=== PATIENT | female | born 1950 | race Caucasian/White ===

== ENCOUNTER 2019-09-05 15:58 | Inpatient (IN) | payer BC, OTHER ==
[~2019-09-05] VITALS: Ht 160 cm; Wt 69.1 kg
[2019-09-05 16:10] VITALS: BP 203/83
[2019-09-05] MEDS ORDERED: TENORMIN25 MG PO (16:13)
[2019-09-05 16:39] LABS: ABSOLUTE NEUTROPHILS 3.6 thou/uL (1.4-8.2); EOSINOPHILS 3.2 % (0.0-3.0); HEMATOCRIT 44.5 % (37.0-47.0); HEMOGLOBIN 14.4 gm/dL (12.0-15.0); LYMPHOCYTES 33.5 % (24.0-44.0); MCH 28.4 pg (26.0-34.0); MCHC 32.3 g/dL (28.0-37.0); MCV 87.7 fL (80.0-100.0); MONOCYTES 6.3 % (1.0-8.0); PLATELET COUNT 335 thou/uL (150-400); RBC 5.07 mil/uL (4.20-5.00); WBC 6.5 thou/uL (4.0-11.0)
[2019-09-05 16:41] LABS: ANION GAP 6 mmol/L (7-16); BUN 15 mg/dL (7-18); CALCIUM 9.4 mg/dL (8.5-10.1); CHLORIDE 105 mmol/L (98-107); CO2 30 mmol/L (21-32); CREATININE 0.7 mg/dL (0.6-1.0); GLUCOSE 92 mg/dL (74-106); POTASSIUM 3.9 mmol/L (3.5-5.1); SODIUM 141 mmol/L (136-145)
[2019-09-05 16:49] LABS: TROPONIN-I <0.06 ng/mL (<0.06)
[2019-09-05 17:32] LABS: URINE BILIRUBIN NEGATIVE (Negative); URINE BLOOD NEGATIVE (Negative); URINE CLARITY CLEAR; URINE COLOR YELLOW; URINE GLUCOSE-RANDOM* NEGATIVE (Negative); URINE KETONES NEGATIVE (Negative); URINE LEUKOCYTES-REFLEX NEGATIVE (Negative); URINE NITRITE-REFLEX NEGATIVE (Negative); URINE PROTEIN (DIPSTICK) NEGATIVE (Negative); URINE UROBILINOGEN 0.2 E.U./dl (0.2-1.0)
[2019-09-05 18:06] VITALS: BP 149/66
[2019-09-05 20:04] VITALS: BP 176/79
[2019-09-05 20:30] VITALS: BP 187/57
[2019-09-06 00:22] VITALS: BP 150/68
--- NOTE | 2019-09-06 04:13 | NUR ---
PT WAS AN ER ADMIT. SHE IS A PT IS DR. VOGEL WHO IS ADMITTED WITH HIGH BLOOD PRESSURE. UPON ARRIVAL BLOOD PRESSURE WAS ELEVATED. PT IS ALERT AND ORIENTED. NO SIGN OF DISTRESS NOTED IN PT. ADMISSION ASSESSMENT AND EDUCATION COMPLETED. PHYSICIAN NOTIFIED UPON ARRIVAL. MEDICATION OBTAINED FOR BP. DENIES ANY PAIN. NO FURTHER NEEDS REQUESTED AT THIS TIME.
[2019-09-06 04:45] VITALS: BP 153/69
[2019-09-06 05:14] LABS: HEMATOCRIT 44.8 % (37.0-47.0); HEMOGLOBIN 14.6 gm/dL (12.0-15.0); MCH 28.6 pg (26.0-34.0); MCHC 32.6 g/dL (28.0-37.0); MCV 87.7 fL (80.0-100.0); RBC 5.11 mil/uL (4.20-5.00); RDW 14.6 % (10.5-14.5); WBC 6.9 thou/uL (4.0-11.0)
[2019-09-06 05:30] LABS: ANION GAP 9 mmol/L (7-16); BUN 14 mg/dL (7-18); CALCIUM 9.2 mg/dL (8.5-10.1); CHLORIDE 106 mmol/L (98-107); CO2 26 mmol/L (21-32); CREATININE 0.7 mg/dL (0.6-1.0); GLUCOSE 96 mg/dL (74-106); SODIUM 141 mmol/L (136-145); TROPONIN-I <0.06 ng/mL (<0.06)
[2019-09-06 07:42] VITALS: BP 143/65
--- NOTE | 2019-09-06 08:06 | EKG ---
[place] [address] [id number] [place] [address] ELECTROCARDIOGRAM REPORT Name: KEVIN RUIZ Room #: 217-P ADM IN M.R.#: [id number] Admission: 09/05/19 Attend Phys: Corbin Najera MD Discharge: Date of : 52 Report #: [id number] THIS REPORT FOR: //name// [facility] ED Test Date: 2019-09-05 Test Time: 16:04:45 Pat Name: KEVIN RUIZ Department: Room: 217 Gender: F Inspecting Supervisor: AKILAH : 1950 Requested By: Emily Jaeger Order Number: [id number] MD: Braydon Cdaena Measurements Intervals [place] Rate: 56 P: 60 DC: 197 QRS: -27 QRSD: 136 T: -5 QT: 437 QTc: 422 Interpretive Statements Sinus bradycardia Right bundle branch block Left ventricular hypertrophy Compared to ECG 01/13/1995 11:50:00 Right bundle-branch block now present Left ventricular hypertrophy now present Electronically Signed On 09-06-2019 8:05:37 DIETETIC AIDE by Braydon Cadena [email or web address] <ELECTRONICALLY SIGNED> By: Braydon Cadena MD, [facility] 09/06/19 0805 [id number] [id number] Braydon Cadena MD, [facility] /EPI
--- NOTE | 2019-09-06 09:06 | 2DMMODE ---
[facility] [place] [address] 2 D/M-MODE ECHOCARDIOGRAM Name: KEVIN RUIZ Room #: 217-P ADM IN M.R.#: [id number] Admission: 09/05/19 Attend Phys: Corbin Najera, Discharge: Date of : 52 Report #: [id number] THIS REPORT FOR: //name// APPROVED REPORT Study performed: 09/06/2019 08:26:31 EXAM: Comprehensive 2D, Doppler, and color-flow Echocardiogram Patient Location: Echo lab Room #: [facility] Status: routine BSA: 1.72 HR: 54 bpm BP: 143/65 mmHg Rhythm: NSR Other Information Study Quality: Adequate Indications EKG changes. Left arm pain. HTN. 2D Dimensions RVDd: 31.57 mm IVSd: 10.63 (7-11mm) LVOT Diam: 18.90 (18-24mm) LVDd: 40.26 mm PWd: 9.70 (7-11mm) Ascending Ao: 34.49 (22-36mm) LVDs: 28.47 (25-40mm) Aortic Root: 35.25 mm Volumes Left Atrial Volume (Systole) Single Plane 4CH: 37.29 mL Single Plane 2CH: 34.23 mL LA ESV Index: 22.00 mL/m2 Aortic Valve AoV Peak Awais.: 1.19 m/s AO Peak Gr.: 5.65 mmHg LVOT Max P.71 mmHg LVOT Max V: 1.09 m/s DEEPALI Vmax: 2.56 cm2 Mitral Valve E/A Ratio: 0.6 MV Decel. Time: 234.41 ms MV E Max Awais.: 0.52 m/s [facility] [place] [address] 2 D/M-MODE ECHOCARDIOGRAM Name: KEVIN RUIZ Room #: 217-P [facility] IN ..#: [id number] Admission: 09/05/19 Attend Phys: Corbin Najera, Discharge: Date of : 52 Report #: [id number] MV A Awais.: 0.84 m/s MV PHT: 67.98 ms IVRT: 92.27 ms Pulmonary Valve PV Peak Awais.: 0.82 m/s PV Peak Gr.: 2.68 mmHg Pulmonary Vein P Vein S: 0.59 m/s P Vein A: 0.27 m/s P Vein D: 0.39 m/s P Vein A Dur.: 138.4 msec P Vein S/D Ratio: 1.51 Tricuspid Valve TR Peak Awais.: 1.92 m/s RAP Estimate: 5.00 mmHg TR Peak Gr.: 15.00 mmHg PA Pressure: 20.00 mmHg Left Ventricle The left ventricle is normal size. There is normal LV segmental wall motion. There is normal left ventricular wall thickness. Left ventricular systolic function is normal. LVEF is 60%. Mild diastolic dysfunction is present (impaired relaxation pattern). Right Ventricle The right ventricle is normal size. The right ventricular systolic function is normal. Atria The left atrium size is normal. The right atrium size is normal. Aortic Valve The aortic valve is normal in structure. No aortic regurgitation is present. There is no aortic valvular stenosis. Mitral Valve The mitral valve is normal in structure. Trace mitral regurgitation. No evidence of mitral valve stenosis. Tricuspid Valve The tricuspid valve is normal in structure. Trace tricuspid regurgitation. Estimated PAP is 20mmHg. Pulmonic Valve The pulmonary valve is normal in structure. Trace pulmonic regurgitation. [facility] [address] [place] [address] 2 D/M-MODE ECHOCARDIOGRAM Name: KEVIN RUIZ Room #: 217-P [facility] IN .R.#: [id number] Admission: 09/05/19 Attend Phys: Corbin Najera, Discharge: Date of : 52 Report #: [id number] [place]essels The aortic root is normal in size. The ascending aorta is normal in size. IVC is normal in size and collapses >50% with inspiration. Pericardium There is no pericardial effusion. <Conclusion> The left ventricle is normal size. There is normal left ventricular wall thickness. Left ventricular systolic function is normal. Mild diastolic dysfunction is present (impaired relaxation pattern). The right ventricle is normal size. The left atrium size is normal. The aortic valve is normal in structure. Trace mitral regurgitation. Trace tricuspid regurgitation. Estimated PAP is 20mmHg. <ELECTRONICALLY SIGNED> By: Gene Peña MD 09/06/19904 4 4 Gene Peña MD /INF
[2019-09-06] MEDS ORDERED: NORVASC5 MG PO ×2 (09:09→09:31)
[2019-09-06 09:29] LABS: CHOLESTEROL 226 mg/dL (<200); HDL CHOLESTEROL 52 mg/dL (>40); LDL CHOLESTEROL 139 mg/dL (<100); TC:HDL 4.3 Ratio (Not establshd); TRIGLYCERIDE 178 mg/dL (<150); VLDL 36 mg/dL (<40)
[2019-09-06] MEDS ORDERED: BYSTOLIC10 MG PO (09:31)
[2019-09-06] MEDS ORDERED: BENICAR HCT 401 EACH PO (09:33)
--- NOTE | 2019-09-06 09:53 | NUR ---
AAOX4. DOWN FOR ECHO THIS AEvie GUSMAN CONSULTED, CHANGING HTN MEDS FOR DISCHARGE AND WILL SEE IN FOLLOWUP. HOME ONCE DISCHARGE MEDS DETERMINED.
[2019-09-06 10:21] VITALS: BP 143/65
== END 2019-09-06 11:46 | disposition home or self-care (01) | DRG 305 ==
LOC: ER 15:58 → 2N 18:02 → EROBS 18:02 → ER 20:05 → 2N 20:10 → ENTRNSPT 09-06 11:28 → EDTRNSPTSTS 09-06 11:30 → 2N 09-06 11:46
PROVIDERS: Nurse Practitioner; Nurse Practitioner Family; ADMIT Family Medicine
DX: I16.0 Hypertensive urgency (principal); M79.602 Pain in left arm; I10 Essential (primary) hypertension; Z90.710 Acquired absence of both cervix and uterus; Z79.899 Other long term (current) drug therapy; Z82.49 Family history of ischemic heart disease and other diseases of the circulatory system; Z88.6 Allergy status to analgesic agent
CPT/HCPCS: 10081

== ENCOUNTER 2019-10-16 16:26 | Emergency (ER) | payer BC, OTHER ==
[~2019-10-16] VITALS: Ht 160 cm; Wt 69.0 kg
[~2019-10-16 16:26] MED LIST: BENICAR HCT 401 EACH PO; BYSTOLIC10 MG PO; NORVASC5 MG PO; TENORMIN25 MG PO
[2019-10-16] MEDS ORDERED: LEVAQUIN 500 M500 M3 PO (16:37)
[2019-10-16] MEDS ORDERED: TESSALON PERLE100 MG PO ×2 (16:37→18:10)
[2019-10-16 17:20] LABS: ABSOLUTE NEUTROPHILS 5.9 thou/uL (1.4-8.2); BASOPHILS 0.8 % (0.0-2.0); EOSINOPHILS 9.9 % (0.0-3.0); HEMOGLOBIN 14.2 gm/dL (12.0-15.0); LYMPHOCYTES 21.6 % (24.0-44.0); MCH 28.9 pg (26.0-34.0); MCHC 32.9 g/dL (28.0-37.0); MCV 87.9 fL (80.0-100.0); MONOCYTES 6.1 % (1.0-8.0); PLATELET COUNT 339 thou/uL (150-400); POLYS 61.6 % (36.0-66.0); RBC 4.89 mil/uL (4.20-5.00); RDW 14.4 % (10.5-14.5); WBC 9.6 thou/uL (4.0-11.0)
[2019-10-16 17:30] LABS: ANION GAP 5 mmol/L (7-16); BUN 13 mg/dL (7-18); CALCIUM 9.2 mg/dL (8.5-10.1); CHLORIDE 101 mmol/L (98-107); CO2 31 mmol/L (21-32); CREATININE 0.8 mg/dL (0.6-1.0); GLUCOSE 113 mg/dL (74-106); POTASSIUM 3.5 mmol/L (3.5-5.1); SODIUM 137 mmol/L (136-145)
[2019-10-16 17:40] LABS: ALBUMIN 3.7 g/dL (3.4-5.0); MAGNESIUM 1.8 mg/dL (1.8-2.4); SGOT 16 U/L (15-37); SGPT 24 U/L (30-65); TOTAL BILIRUBIN 0.2 mg/dL (<0.1-1.0); TOTAL PROTEIN 7.8 g/dL (6.4-8.2); TROPONIN-I <0.06 ng/mL (<0.06)
[2019-10-16] MEDS ORDERED: PREDNISONE 20 M20 MG PO (18:10)
[2019-10-16] MEDS ORDERED: VENTOLIN HFA 1818 GM INH (18:10)
[2019-10-16 18:17] VITALS: BP 136/61
--- NOTE | 2019-10-17 08:00 | EKG ---
[place] [address] [facility] [place] [address] ELECTROCARDIOGRAM REPORT Name: KEVIN RUIZ [id number] Admission: 10/16/19 Attend Phys: Discharge: 10/16/19 Date of : 52 Report #: [id number] THIS REPORT FOR: //name// [facility] ED Test Date: 2019-10-16 Test Time: 17:12:01 Pat Name: KEVIN RUIZ Department: Room: Gender: F Food Concession Manager: SRAVAN : 1950 Requested By: Elia Lawton Order Number: [id number] MD: Royer Azar Measurements Intervals [place] Rate: 69 P: 62 AL: 193 QRS: -19 QRSD: 139 T: -3 QT: 411 QTc: 441 Interpretive Statements Sinus rhythm Right bundle branch block Left ventricular hypertrophy Compared to ECG 09/05/2019 16:04:45 Sinus bradycardia no longer present Electronically Signed On 10-17-2019 7:59:00 SWITCH CREW SUPERVISOR by Royer Azar [email or web address] <ELECTRONICALLY SIGNED> By: Royer Azar MD 10/17/19 0759 11 11 Royer Azar MD /RANDEE
== END 2019-10-16 18:18 | disposition home or self-care (01) ==
LOC: ER 16:26
PROVIDERS: Emergency Medicine
DX: J20.9 Acute bronchitis, unspecified (principal); J45.909 Unspecified asthma, uncomplicated; I10 Essential (primary) hypertension; Z90.710 Acquired absence of both cervix and uterus; Z88.6 Allergy status to analgesic agent

== ENCOUNTER → 2019-11-10 | Outpatient (CLI) | payer BC, OTHER ==
[~2019-11-10] MED LIST changes: +LEVAQUIN 500 M500 M3 PO; +PREDNISONE 20 M20 MG PO; +TESSALON PERLE100 MG PO; +VENTOLIN HFA 1818 GM INH
== END ==
LOC: CAT 09:57
DX: J98.11 Atelectasis (principal)

== ENCOUNTER 2019-11-25 21:33 | Emergency (ER) | payer BC, OTHER ==
[~2019-11-25] VITALS: Ht 160 cm; Wt 69.0 kg
[2019-11-25 22:07] LABS: ABSOLUTE NEUTROPHILS 5.3 thou/uL (1.4-8.2); BASOPHILS 1.2 % (0.0-2.0); EOSINOPHILS 14.3 % (0.0-3.0); HEMOGLOBIN 14.2 gm/dL (12.0-15.0); LYMPHOCYTES 27.2 % (24.0-44.0); MCH 28.2 pg (26.0-34.0); MCHC 32.2 g/dL (28.0-37.0); MCV 87.8 fL (80.0-100.0); MONOCYTES 5.8 % (1.0-8.0); POLYS 51.5 % (36.0-66.0); RBC 5.01 mil/uL (4.20-5.00); RDW 14.2 % (10.5-14.5); WBC 11.3 thou/uL (4.0-11.0)
[2019-11-25 22:18] LABS: ANION GAP 11 mmol/L (7-16); BUN 16 mg/dL (7-18); CALCIUM 8.9 mg/dL (8.5-10.1); CHLORIDE 103 mmol/L (98-107); CO2 25 mmol/L (21-32); CREATININE 0.7 mg/dL (0.6-1.0); GLUCOSE 152 mg/dL (74-106); SODIUM 139 mmol/L (136-145)
[2019-11-25 22:20] LABS: APTT 21.5 Seconds (24.5-32.8); PROTIME 9.7 Seconds (9.3-11.4)
[2019-11-25 22:22] LABS: ALBUMIN 3.6 g/dL (3.4-5.0); MAGNESIUM 2.1 mg/dL (1.8-2.4); SGOT 32 U/L (15-37); SGPT 18 U/L (30-65); TOTAL BILIRUBIN 0.4 mg/dL (<0.1-1.0); TOTAL PROTEIN 7.6 g/dL (6.4-8.2); TROPONIN-I <0.06 ng/mL (<0.06)
[2019-11-25 22:37] LABS: PLATELET COUNT 336 thou/uL (150-400)
[2019-11-25] MEDS ORDERED: PREDNISONE 20 M20 MG PO (23:19)
[2019-11-25] MEDS ORDERED: VENTOLIN HFA 1818 GM INH (23:19)
[2019-11-25 23:47] VITALS: BP 137/68
--- NOTE | 2019-11-26 13:23 | EKG ---
[facility] [place] [address] [address] ELECTROCARDIOGRAM REPORT Name: KEVIN RUIZ Room #: [facility]..#: [id number] Admission: 11/25/19 Attend Phys: Discharge: 11/25/19 Date of : 52 Report #: [id number] THIS REPORT FOR: cc: Corbin Najera MD, Neal A. MD Lundgren,Braydon Almonte MD [facility] ~ THIS REPORT FOR: //name// [facility] ED Test Date: 2019-11-25 Test Time: 22:04:39 Pat Name: KEVIN RUIZ Department: Room: Gender: F Instructional Media Services Technician: [facility] : 1950 Requested By: Paris Sweeney Order Number: [id number] MD: Braydon Cadena Measurements Intervals [place] Rate: 91 P: 80 MD: 196 QRS: -5 QRSD: 157 T: -4 QT: 454 QTc: 559 Interpretive Statements Sinus rhythm Right bundle branch block Compared to ECG 10/16/2019 17:12:01 No significant change was found Electronically Signed On 11-26-2019 13:22:42 CDT by Braydon Cadena [email or web address] <ELECTRONICALLY SIGNED> By: Braydon Cadena MD, [facility] 11/26/19 1322 2204 Braydon Cadena MD, [facility] /EPI
== END 2019-11-25 23:40 | disposition home or self-care (01) ==
LOC: ER 21:33
PROVIDERS: Physician Assistant
DX: J40 Bronchitis, not specified as acute or chronic (principal); K21.9 Gastro-esophageal reflux disease without esophagitis; I10 Essential (primary) hypertension; Z90.710 Acquired absence of both cervix and uterus; Z79.899 Other long term (current) drug therapy; Z79.2 Long term (current) use of antibiotics; Z88.6 Allergy status to analgesic agent